=== PATIENT | male | born 1975 | race Hispanic/Latino ===

== ENCOUNTER 2018-10-19 18:37 | Emergency (ER) | payer SELFPAY ==
[~2018-10-19] VITALS: Ht 162.6 cm; Wt 75.4 kg
[2018-10-19] MEDS ORDERED: KEFLEX500 M1 PO (19:50)
[2018-10-19 20:04] VITALS: BP 140/94
== END 2018-10-19 20:13 | disposition home or self-care (01) | DRG 563 ==
LOC: ED 18:37
PROC: 0HQGXZZ Repair Left Hand Skin, External Approach (ICD-10-PCS; principal; 2018-10-19)
DX: S62.631B Displaced fracture of distal phalanx of left index finger, initial encounter for open fracture (principal); W23.0XXA Caught, crushed, jammed, or pinched between moving objects, initial encounter; Y93.89 Activity, other specified; Y92.89 Other specified places as the place of occurrence of the external cause; Y99.0 Civilian activity done for income or pay

== ENCOUNTER 2018-10-28 12:24 | Emergency (ER) | payer SELFPAY ==
[~2018-10-28] VITALS: Ht 162.6 cm; Wt 75.0 kg
[~2018-10-28 12:24] MED LIST: KEFLEX500 M1 PO
[2018-10-28 13:02] VITALS: BP 138/90
== END 2018-10-28 13:12 | disposition home or self-care (01) | DRG 950 ==
LOC: ED 12:24
DX: S61.002D Unspecified open wound of left thumb without damage to nail, subsequent encounter (principal); X58.XXXD Exposure to other specified factors, subsequent encounter